=== PATIENT | male | born 1955 | race Caucasian/White ===

== ENCOUNTER 2018-01-16 08:17 | Outpatient (CLI) | payer OTHER ==
[2018-01-16 09:40] LABS: #Basophils 0.1 thou/uL (0.0-0.2); #Lymphocytes 0.2 thou/uL (1.20-3.40); #Monocytes 0.3 thou/uL (0.11-0.59); #Neutrophils 3.8 thou/uL (1.40-6.50); %Basophils 1.5 % (0.0-1.0); %Eosinophils 0.2 % (0.0-10.0); %Lymphocytes 4.3 % (21.0-51.0); %Monocytes 7.1 % (0.0-10.0); %Neutrophils 86.9 % (42.0-75.0); Hemoglobin 13.2 g/dL (14.0-18.0); Mean Corpuscular HGB CONC 33.2 g/dL (32.0-36.0); Mean Corpuscular Hemoglobin 32.4 pg (27.0-31.0); Mean Corpuscular Volume 97.5 fL (78.0-98.0); Mean Platelet Volume 4.8 fL (7.4-10.4); Platelet Count 297 thou/uL (130-400); RBC Distribution Width 14.8 % (11.5-14.5); Red Blood Cell (RBC) Count 4.06 mill/uL (4.70-6.10); White Blood Cell (WBC) Count 4.3 thou/uL (4.8-10.8)
[2018-01-16 10:18] LABS: ALT (SGPT) 11 U/L (8-55); AST (SGOT) 19 U/L (5-34); Albumin 3.7 g/dL (3.5-5.0); Alkaline Phosphatase 144 U/L (40-150); Anion Gap 18 mmol/L (10-20); BUN (Urea Nitrogen) 6 mg/dL (8.4-25.7); Bilirubin, Direct 0.5 mg/dL (0.1-0.3); Calc. Creatinine Clearance 0 mL/min (70-130); Calcium 9.3 mg/dL (7.8-10.44); Carbon Dioxide 23 mmol/L (22-29); Chloride 98 mmol/L (98-107); Estimated GFR-MDRD 82; Glucose 81 mg/dL (70-105); Lipase 25 U/L (8-78); Potassium 3.7 mmol/L (3.5-5.1); Protein, Total 6.7 g/dL (6.0-8.3); Sodium 135 mmol/L (136-145)
--- NOTE | 2018-01-16 10:46 | ULT ---
ULTRASOUND ABDOMEN LIMITED: (RIGHT UPPER QUADRANT) HISTORY: A 62-year-old male with right upper quadrant abdominal pain. FINDINGS: The gallbladder has normal wall thickness and has no evidence of gallstones or sludge. The hepatic e chogenicity is normal. The right kidney has normal echogenicity and has no hydronephrosis. The panc reas is visualized, although ultrasound is relatively insensitive for pancreatic pathology compared t o CT and MRI. There is no biliary dilation. The common duct caliber is 3 mm. IMPRESSION: Normal. jn [] POS: [facility]
== END 2018-01-16 08:18 | disposition home or self-care (01) ==
LOC: MADLAB 08:17
PROVIDERS: ATTEND Family Medicine
DX: R10.11 Right upper quadrant pain (principal)
CPT/HCPCS: 36415; 76705; 80048; 80076; 83690; 85025

== ENCOUNTER 2018-05-18 16:07 | Emergency (ER) | payer OTHER ==
[~2018-05-18 16:07] MED LIST: Iopamidol 370 76% 100 ML VIAL ONE; Sodium Chloride 0.9% 1,000 ML BAG ONE
[2018-05-18] MEDS ORDERED: Fentanyl 100 MCG/2 ML VIAL ONE ×2 (16:36→18:06)
[2018-05-18 16:55] LABS: #Lymphocytes 0.7 thou/uL (1.20-3.40); #Monocytes 0.2 thou/uL (0.11-0.59); #Neutrophils 4.8 thou/uL (1.40-6.50); %Basophils 0.5 % (0.0-1.0); %Eosinophils 0.3 % (0.0-10.0); %Lymphocytes 12.4 % (21.0-51.0); %Monocytes 3.7 % (0.0-10.0); %Neutrophils 83.1 % (42.0-75.0); Hemoglobin 13.2 g/dL (14.0-18.0); Mean Corpuscular HGB CONC 33.8 g/dL (32.0-36.0); Mean Corpuscular Hemoglobin 33.1 pg (27.0-31.0); Mean Corpuscular Volume 97.9 fL (78.0-98.0); Mean Platelet Volume 4.9 fL (7.4-10.4); Platelet Count 492 thou/uL (130-400); RBC Distribution Width 13.1 % (11.5-14.5); White Blood Cell (WBC) Count 5.8 thou/uL (4.8-10.8)
[2018-05-18 17:13] LABS: ALT (SGPT) 11 U/L (8-55); AST (SGOT) 16 U/L (5-34); Albumin 3.8 g/dL (3.5-5.0); Alkaline Phosphatase 124 U/L (40-150); Anion Gap 22 mmol/L (10-20); BUN (Urea Nitrogen) 12 mg/dL (8.4-25.7); Calc. Creatinine Clearance 0 mL/min (70-130); Calcium 9.9 mg/dL (7.8-10.44); Carbon Dioxide 22 mmol/L (22-29); Chloride 95 mmol/L (98-107); Estimated GFR-MDRD 76; Globulin 3.1 g/dL (2.4-3.5); Glucose 72 mg/dL (70-105); Lipase 72 U/L (8-78); Potassium 3.3 mmol/L (3.5-5.1); Protein, Total 6.9 g/dL (6.0-8.3); Sodium 136 mmol/L (136-145)
[2018-05-18] MEDS ORDERED: Potassium Chloride 20 MEQ/100 ML PREMIX BAG ONE ×2 (18:06→20:12)
[2018-05-18] MEDS ORDERED: Pantoprazole 40 MG VIAL ONE (18:06)
--- NOTE | 2018-05-18 19:31 | RAD ---
UPRIGHT AND SUPINE VIEWS OF THE ABDOMEN: 05/18/18 HISTORY: Abdominal pain. Patient has history of duodenal ulcer. Polypectomy on 05/01/18. Weight loss. COMPARISON: None available. FINDINGS: The lung bases and upper abdomen are excluded from view on this examination. There is gaseous distent ion of loops of bowel without significant dilated loops of small bowel present. No suspicious calcifi cations are identified. Degenerative changes are noted in the spine. IMPRESSION: 1. Nonspecific bowel gas pattern with gaseous distention of small and large loops of bowel. 2. Exclusion of the lung bases and upper abdomen. POS: [facility]
[2018-05-18] MEDS ORDERED: Acetaminophen 500 MG TAB ONE (19:56)
[2018-05-18] MEDS ORDERED: Sodium Chloride 0.9% 500 ML ONE (20:11)
[2018-05-18] MEDS ORDERED: Sodium Chloride 0.9% 1,000 ML ONE (20:11)
--- NOTE | 2018-05-18 20:20 | CT ---
CT ABDOMEN: 05/18/18 HISTORY: Recent polypectomy. Abdominal pain. Duodenal ulcer. Weight loss and decreased appetite. COMPARISON: None. CORRELATION: Chest CT 10/31/17. FINDINGS: Abdomen CT: Interval decrease in size of previously noted right sided pleural effusion. Chronic change in the josselin g bases are noted. Portal vein is patent. Unremarkable gallbladder. The liver, spleen, pancreas, and adrenal glands have appropriate enhancement. No gastrohepatic, retro crural or periportal lymphadenopathy. There are a few scattered nonspecific mesenteric lymph nodes. N o mesenteric mass, free air, or free fluid. Symmetric enhancement of the kidneys. Bilaterally, no obs tructive uropathy. Symmetric attenuation of the psoas muscles. Gastric mucosa, duodenum and multiple normal caliber small bowel loops are identified. Ileocecal junction is unremarkable. Normal caliber a ppendix. Scattered fecal material and contrast in a nondistended, nondilated colon. No evidence of co krystyna obstruction. Occasional diverticulum. No diverticulitis. CT PELVIS: No mass, lymphadenopathy, free air or free fluid. Urinary bladder is unremarkable. No lytic or blastic lesion in the osseous structures. IMPRESSION: 1. Chronic change in the lung bases. The degree of pleural fluid has decreased when compared to the previous exam. 2. Nonspecific abdominal lymph nodes. Correlate clinically for mesenteric lymphadenitis. No evid ence of bowel obstruction. POS: [facility]
[2018-05-18 20:33] LABS: ALT (SGPT) 9 U/L (8-55); AST (SGOT) 14 U/L (5-34); Albumin 3.2 g/dL (3.5-5.0); Alkaline Phosphatase 102 U/L (40-150); Anion Gap 17 mmol/L (10-20); BUN (Urea Nitrogen) 11 mg/dL (8.4-25.7); Bilirubin, Total 0.8 mg/dL (0.2-1.2); Calc. Creatinine Clearance 0 mL/min (70-130); Calcium 8.7 mg/dL (7.8-10.44); Carbon Dioxide 21 mmol/L (22-29); Chloride 100 mmol/L (98-107); Estimated GFR-MDRD 87; Globulin 2.4 g/dL (2.4-3.5); Glucose 78 mg/dL (70-105); Potassium 3.5 mmol/L (3.5-5.1); Protein, Total 5.6 g/dL (6.0-8.3); Sodium 134 mmol/L (136-145)
[2018-05-18 20:44] LABS: #Basophils 0.1 thou/uL (0.0-0.2); #Lymphocytes 0.3 thou/uL (1.20-3.40); #Monocytes 0.3 thou/uL (0.11-0.59); #Neutrophils 5.8 thou/uL (1.40-6.50); %Eosinophils 0.4 % (0.0-10.0); %Lymphocytes 5.8 % (21.0-51.0); %Monocytes 4.6 % (0.0-10.0); %Neutrophils 88.2 % (42.0-75.0); Hemoglobin 11.9 g/dL (14.0-18.0); Mean Corpuscular HGB CONC 32.8 g/dL (32.0-36.0); Mean Corpuscular Hemoglobin 33.1 pg (27.0-31.0); Mean Platelet Volume 4.6 fL (7.4-10.4); Platelet Count 390 thou/uL (130-400); RBC Distribution Width 13.6 % (11.5-14.5); Red Blood Cell (RBC) Count 3.64 mill/uL (4.70-6.10); White Blood Cell (WBC) Count 6.4 thou/uL (4.8-10.8)
== END 2018-05-18 20:22 | disposition short-term general hospital (02) ==
LOC: MADERS 16:07
DX: R10.9 Unspecified abdominal pain (principal); R65.10 Systemic inflammatory response syndrome (SIRS) of non-infectious origin without acute organ dysfunction; E87.6 Hypokalemia; R63.4 Abnormal weight loss; E03.9 Hypothyroidism, unspecified; N40.1 Benign prostatic hyperplasia with lower urinary tract symptoms
CPT/HCPCS: 36415; 74019; 74177; 80053; 83605; 83690; 83735; 85025; 87040; 96361; 96365; 96366; 96375; 96376; C9113; J3010; J3480; J7050

== ENCOUNTER 2018-11-12 13:02 | Outpatient (CLI) | payer OTHER ==
--- NOTE | 2018-11-12 13:23 | RAD ---
RIGHT ANKLE 3 VIEWS: HISTORY: Fall, right ankle pain. FINDINGS/IMPRESSION: The ankle mortise is maintained. Calcaneal spurs are present. There is a faint linear lucency in th e medial malleolus suspicious for a nondisplaced fracture. POS: OFF
--- NOTE | 2018-11-12 13:24 | RAD ---
RIGHT FOOT 3 VIEWS: Date: 11/12/18 HISTORY: Fall, right foot pain. FINDINGS/IMPRESSION: Calcaneal spur is present. No acute fracture or dislocation is identified. POS: OFF
== END 2018-11-12 13:03 | disposition home or self-care (01) ==
LOC: MADRAD 13:02
PROVIDERS: ATTEND Internal Medicine Rheumatology
DX: M15.0 Primary generalized (osteo)arthritis (principal); M06.9 Rheumatoid arthritis, unspecified; Z92.25 Personal history of immunosuppression therapy; Z92.241 Personal history of systemic steroid therapy; M77.31 Calcaneal spur, right foot

== ENCOUNTER → 2018-11-15 | Emergency (ER) | payer OTHER | LOC: MADERS 16:55 | DX: S82.891A Other fracture of right lower leg, initial encounter for closed fracture (principal); Z46.89 Encounter for fitting and adjustment of other specified devices; Z86.711 Personal history of pulmonary embolism; Z86.718 Personal history of other venous thrombosis and embolism; X58.XXXA Exposure to other specified factors, initial encounter | CPT/HCPCS: 29515 ==

== ENCOUNTER 2019-03-11 17:45 | Emergency (ER) | payer OTHER ==
[~2019-03-11 17:45] MED LIST changes: -Iopamidol 370 76% 100 ML VIAL ONE; -Sodium Chloride 0.9% 1,000 ML BAG ONE; +Sodium Chloride Irrig Solution 250 ML BOT ONE
[2019-03-11] MEDS ORDERED: Morphine 4 MG/ML VIAL ONE (18:03)
[2019-03-11] MEDS ORDERED: Adacel (T-DAP) 0.5 ML SYRINGE ONE (18:03)
[2019-03-11] MEDS ORDERED: Ketorolac Tromethamine 60 MG/2 ML VIAL ONE (18:03)
[2019-03-11] MEDS ORDERED: Bacitracin 1 PK ONE ×2 (18:03→18:04)
--- NOTE | 2019-03-11 18:58 | RAD ---
RIGHT FOREARM TWO VIEWS: HISTORY: Injury. FINDINGS: Obliquely oriented, mildly displaced fracture of the distal ulna with fracture involving the distal u lnar diaphysis and involving the distal ulna at the ulnar carpal joint with slight displacement. The radius appears intact. IMPRESSION: Fracture distal ulna. POS: [facility]
[2019-03-11] MEDS ORDERED: HYDROcodone/Acetaminophen 10/325 mg Tablet ONE (19:08)
== END 2019-03-11 19:25 | disposition home or self-care (01) ==
LOC: MADERS 17:45
DX: S59.001A Unspecified physeal fracture of lower end of ulna, right arm, initial encounter for closed fracture (principal); S51.801A Unspecified open wound of right forearm, initial encounter; Z23 Encounter for immunization; W55.12XA Struck by horse, initial encounter
CPT/HCPCS: 29125; 90471; 90715; 96372; 96374; J1885; J2270

== ENCOUNTER 2019-05-13 08:57 | Outpatient (CLI) | payer OTHER ==
--- NOTE | 2019-05-13 09:48 | RAD ---
Left wrist:4 views INDICATIONS:Injury with pain COMPARISON:None FINDINGS: Metallic foreign body seen in the thenar eminence with a larger metallic foreign body adjacent to the first MCP joint. Degenerative change at the first carpal metacarpal and degenerative change at the first MCP joint. No acute fracture. IMPRESSION: Metallic foreign bodies and degenerative changes as described. No acute fracture.
== END 2019-05-13 08:58 | disposition home or self-care (01) ==
LOC: MADRAD 08:57
PROVIDERS: ATTEND Family Medicine
DX: M25.432 Effusion, left wrist (principal); M19.032 Primary osteoarthritis, left wrist

== ENCOUNTER 2020-05-27 21:02 | Emergency (ER) | payer OTHER ==
[2020-05-27 22:30] LABS: Clarity Clear (Clear)
[2020-05-27 22:31] LABS: Bilirubin Negative (Negative); Blood, Urine Trace (Negative); Glucose, Urine (Dipstick) Negative (Negative); Ketone, Urine Negative (Negative); Leukocyte Negative (Negative); Nitrite Negative (Negative); Protein, Urine (Dipstick) Negative (Neg-Trace); Urobilinogen 0.2 mg/dL (Less than 2)
[2020-05-27 22:32] LABS: RBC/HPF 0-3 HPF (0-3); Squamous Epithelial 0-3 HPF (0-3); WBC/HPF 0-3 HPF (0-3)
[2020-05-27 22:33] LABS: Bacteria/HPF Rare-Few HPF (None Seen)
[2020-05-27] MEDS ORDERED: Sodium Chloride 0.9% 500 ML ONE ×2 (22:54→23:44)
[2020-05-27 23:17] LABS: #Basophils 0.1 thou/uL (0.0-0.2); #Eosinphils 0.2 thou/uL (0.0-0.7); #Lymphocytes 0.5 thou/uL (1.20-3.40); #Monocytes 0.7 thou/uL (0.11-0.59); #Neutrophils 8.8 thou/uL (1.40-6.50); %Basophils 1.1 % (0.0-1.0); %Eosinophils 1.5 % (0.0-10.0); %Lymphocytes 4.6 % (21.0-51.0); %Monocytes 7.2 % (0.0-10.0); %Neutrophils 85.6 % (42.0-75.0); Hemoglobin 12.2 g/dL (14.0-18.0); Mean Corpuscular HGB CONC 32.7 g/dL (32.0-36.0); Mean Platelet Volume 6.2 fL (7.4-10.4); Platelet Count 383 thou/uL (130-400); RBC Distribution Width 14.6 % (11.5-14.5); Red Blood Cell (RBC) Count 3.69 mill/uL (4.70-6.10); White Blood Cell (WBC) Count 10.3 thou/uL (4.8-10.8)
[2020-05-27 23:28] LABS: Anion Gap 14 mmol/L (10-20); BUN (Urea Nitrogen) 15 mg/dL (8.4-25.7); Calc. Creatinine Clearance 0 mL/min (70-130); Calcium 8.3 mg/dL (7.8-10.44); Carbon Dioxide 28 mmol/L (23-31); Chloride 101 mmol/L (98-107); Glucose 105 mg/dL (80-115); Potassium 4.4 mmol/L (3.5-5.1); Sodium 139 mmol/L (136-145)
[2020-05-28] MEDS ORDERED: Sodium Chloride 0.9% 1,000 ML ONE (00:29)
--- NOTE | 2020-05-28 08:03 | RAD ---
XR Chest 1 View Portable HISTORY: Hypotension COMPARISON: 05/01/2020 FINDINGS: The heart size is normal. The aorta is tortuous. There is blunting of the costophrenic angl es indicative of small effusions. No lobar consolidation or pneumothoraces are seen. There is no evidence of neli pulmonary edema.
== END 2020-05-28 01:40 | disposition left against medical advice (07) ==
LOC: MADERS 21:02
DX: R33.9 Retention of urine, unspecified (principal); I95.9 Hypotension, unspecified; I50.9 Heart failure, unspecified; Z79.899 Other long term (current) drug therapy
CPT/HCPCS: 51703; 71045; 80048; 81003; 81015; 82550; 83605; 83880; 84484; 85025; 85379; 87040; 87086; 93005; J7030; J7050

== ENCOUNTER 2020-06-14 17:25 | Emergency (ER) | payer OTHER ==
[2020-06-14] MEDS ORDERED: Ketorolac Tromethamine 30 MG/ML VIAL ONE (18:03)
[2020-06-14] MEDS ORDERED: Acetaminophen 500 MG TAB ONE (18:03)
--- NOTE | 2020-06-14 18:20 | RAD ---
Left shoulder 3 views HISTORY: Fall. Injury. FINDINGS: Comminuted predominantly oblique fracture extends through the surgical neck of the humerus with mild varus angulation and minimal displacement. Acromioclavicular and glenohumeral alignment are maintained. Old left lateral upper rib fractures are stable compared to prior chest radiograph. IMPRESSION : Left humeral neck fracture.
== END 2020-06-14 18:52 | disposition home or self-care (01) ==
LOC: MADERS 17:25
DX: S42.412A Displaced simple supracondylar fracture without intercondylar fracture of left humerus, initial encounter for closed fracture (principal); M06.9 Rheumatoid arthritis, unspecified; I50.9 Heart failure, unspecified; N40.0 Benign prostatic hyperplasia without lower urinary tract symptoms; Z79.82 Long term (current) use of aspirin; Z79.899 Other long term (current) drug therapy; W19.XXXA Unspecified fall, initial encounter
CPT/HCPCS: 25600; 96372; J1885

== ENCOUNTER 2020-08-31 14:27 | Outpatient (CLI) | payer OTHER | END 2020-08-31 14:28 | disposition home or self-care (01) | LOC: MADLAB 14:27 | PROVIDERS: ATTEND Family Medicine | DX: E03.9 Hypothyroidism, unspecified (principal) | CPT/HCPCS: 36415; 84443 ==

== ENCOUNTER 2020-10-29 10:52 | Outpatient (CLI) | payer OTHER ==
[2020-10-29 11:22] LABS: #Basophils 0.1 thou/uL (0.0-0.2); #Eosinphils 0.3 thou/uL (0.0-0.7); #Lymphocytes 0.6 thou/uL (1.20-3.40); #Monocytes 0.4 thou/uL (0.11-0.59); #Neutrophils 3.3 thou/uL (1.40-6.50); %Basophils 1.9 % (0.0-1.0); %Eosinophils 6.5 % (0.0-10.0); %Lymphocytes 12.8 % (21.0-51.0); %Monocytes 8.4 % (0.0-10.0); %Neutrophils 70.4 % (42.0-75.0); Mean Corpuscular HGB CONC 31.9 g/dL (32.0-36.0); Mean Corpuscular Volume 100.3 fL (78.0-98.0); Mean Platelet Volume 8.4 fL (7.4-10.4); Platelet Count 289 thou/uL (130-400); RBC Distribution Width 15.7 % (11.5-14.5); Red Blood Cell (RBC) Count 3.45 mill/uL (4.70-6.10); White Blood Cell (WBC) Count 4.7 thou/uL (4.8-10.8)
[2020-10-29 11:38] LABS: ALT (SGPT) 15 U/L (8-55); AST (SGOT) 26 U/L (5-34); Albumin 3.2 g/dL (3.4-4.8); Alkaline Phosphatase 141 U/L (40-110); Anion Gap 13 mmol/L (10-20); BUN (Urea Nitrogen) 12 mg/dL (8.4-25.7); Bilirubin, Total 1.2 mg/dL (0.2-1.2); Calc. Creatinine Clearance 0 mL/min (70-130); Calcium 8.1 mg/dL (7.8-10.44); Carbon Dioxide 29 mmol/L (23-31); Chloride 101 mmol/L (98-107); Globulin 2.2 g/dL (2.4-3.5); Glucose 101 mg/dL (80-115); Protein, Total 5.4 g/dL (5.8-8.1); Sodium 140 mmol/L (136-145)
[2020-10-29 12:53] LABS: Potassium 2.6 mmol/L (3.5-5.1)
[2020-10-29 21:45] LABS: Gamma GT (GGT) 120 U/L (12-64)
== END 2020-10-29 10:53 | disposition home or self-care (01) ==
LOC: MADLAB 10:52
PROVIDERS: ATTEND Internal Medicine Rheumatology
DX: R60.9 Edema, unspecified (principal); M15.0 Primary generalized (osteo)arthritis; M06.9 Rheumatoid arthritis, unspecified; Z92.25 Personal history of immunosuppression therapy
CPT/HCPCS: 36415; 80053; 82977; 85025; 85652; 86140

== ENCOUNTER 2021-01-04 10:45 | Outpatient (CLI) | payer OTHER | END 2021-01-04 10:46 | disposition home or self-care (01) | LOC: MADRAD 10:45 | PROVIDERS: ATTEND Family Medicine | DX: M25.561 Pain in right knee (principal); G89.29 Other chronic pain; M17.11 Unilateral primary osteoarthritis, right knee ==

== ENCOUNTER 2021-08-07 19:42 | Emergency (ER) | payer OTHER ==
[2021-08-07] MEDS ORDERED: Clindamycin 150 MG CAP ONE (20:32)
== END 2021-08-07 20:36 | disposition home or self-care (01) ==
LOC: MADERS 19:42
DX: T81.32XA Disruption of internal operation (surgical) wound, not elsewhere classified, initial encounter (principal); S89.91XA Unspecified injury of right lower leg, initial encounter; I95.89 Other hypotension; M06.9 Rheumatoid arthritis, unspecified; Z79.899 Other long term (current) drug therapy; W18.30XA Fall on same level, unspecified, initial encounter
CPT/HCPCS: 99282

== ENCOUNTER 2022-03-15 14:10 | Outpatient (CLI) | payer OTHER | END 2022-03-15 14:11 | disposition home or self-care (01) | LOC: MADLAB 14:10 → MADRAD 14:11 | PROVIDERS: ATTEND Family Medicine | DX: M25.562 Pain in left knee (principal) ==

== ENCOUNTER 2022-03-31 10:57 | Outpatient (CLI) | payer OTHER ==
[2022-03-31 16:59] LABS: HBSAB Concentration Less than 8.00 mIU/mL; HBSAg Index 0.27 S/CO (0-0.99); Hep B Surf AB Non-Reactive (NonReactive); Hep B Surf Ag Non-Reactive S/CO (NonReactive); Hep C IgG Ab Non-Reactive (NonReactive)
== END 2022-03-31 10:58 | disposition home or self-care (01) ==
LOC: MADLAB 10:57
PROVIDERS: ATTEND Internal Medicine Rheumatology
DX: M05.9 Rheumatoid arthritis with rheumatoid factor, unspecified (principal)
CPT/HCPCS: 36415; 86480; 86706; 86803; 87340

== ENCOUNTER 2024-02-03 04:03 | Emergency (ER) | payer OTHER ==
[2024-02-03] MEDS ORDERED: Ondansetron PF 4 MG/2 ML Vial ONE (04:34)
[2024-02-03 04:43] LABS: #Basophils 0.1 thou/uL (0.0-0.2); #Lymphocytes 0.9 thou/uL (1.20-3.40); #Monocytes 0.4 thou/uL (0.11-0.59); #Neutrophils 7.5 thou/uL (1.40-6.50); %Basophils 0.9 % (0.0-1.0); %Eosinophils 0.1 % (0.0-10.0); %Lymphocytes 10.2 % (21.0-51.0); %Monocytes 4.9 % (0.0-10.0); %Neutrophils 83.9 % (42.0-75.0); Hematocrit 43.9 % (42.0-52.0); Hemoglobin 14.2 g/dL (14.0-18.0); Mean Corpuscular HGB CONC 32.3 g/dL (32.0-36.0); Mean Corpuscular Hemoglobin 31.9 pg (27.0-31.0); Mean Corpuscular Volume 98.8 fl (78.0-98.0); Mean Platelet Volume 6.1 fL (7.4-10.4); Platelet Count 280 10x3/uL (130-400); RBC Distribution Width 12.8 % (11.5-14.5); Red Blood Cell (RBC) Count 4.45 mill/uL (4.70-6.10); White Blood Cell (WBC) Count 8.9 10x3/uL (4.8-10.8)
[2024-02-03 04:57] LABS: ALT (SGPT) 17 U/L (8-55); AST (SGOT) 26 U/L (5-34); Albumin 4.8 g/dL (3.4-4.8); Alkaline Phosphatase 102 U/L (40-110); Anion Gap 29 mmol/L (10-20); BUN (Urea Nitrogen) 14 mg/dL (8.4-25.7); Bilirubin, Total 0.8 mg/dL (0.2-1.2); Calc. Creatinine Clearance 0 mL/min (70-130); Calcium 10.9 mg/dL (7.8-10.44); Carbon Dioxide 17 mmol/L (23-31); Chloride 97 mmol/L (98-107); Estimated GFR 40; Globulin 3.9 g/dL (2.4-3.5); Glucose 161 mg/dL (80-115); Lipase 40 U/L (8-78); Potassium 4.6 mmol/L (3.5-5.1); Protein, Total 8.7 g/dL (5.8-8.1); Sodium 138 mmol/L (136-145)
[2024-02-03] MEDS ORDERED: fentaNYL 50 mcg/mL 1 mL Vial ONE ×2 (05:03→07:40)
[2024-02-03] MEDS ORDERED: Sodium Chloride 0.9% 1,000 ML ONE (08:12)
[2024-02-03] MEDS ORDERED: Iopamidol 370 76% 100 ML VIAL ONE (09:00)
== END 2024-02-03 08:48 | disposition short-term general hospital (02) ==
LOC: MADERS 04:03
DX: R06.02 Shortness of breath (principal); R10.9 Unspecified abdominal pain; N17.9 Acute kidney failure, unspecified; I11.0 Hypertensive heart disease with heart failure; I50.9 Heart failure, unspecified; E03.9 Hypothyroidism, unspecified; Z79.01 Long term (current) use of anticoagulants
CPT/HCPCS: 43753; 74177; 80053; 83690; 85025; 96361; 96374; 96375; 96376; J2405; J3010; J7030; Q9967